=== PATIENT | male | born 1970 | race Caucasian/White ===

== ENCOUNTER 2020-11-01 10:20 | Emergency (ER) | payer OTHER ==
[2020-11-01 11:47] LABS: HEMOGLOBIN 14.8 gm/dl (14.0-17.5); RED BLOOD COUNT 4.88 M/UL (4.20-5.50); WHITE BLOOD COUNT 7.5 K/UL (4.5-11.0)
[2020-11-01 12:07] LABS: BUN/CREATININE RATIO 15 (0-10)
== END 2020-11-01 13:56 | disposition home or self-care (01) ==
LOC: ER1 10:20
PROVIDERS: Physician Assistant
DX: R07.89 Other chest pain (principal); M54.2 Cervicalgia; R06.02 Shortness of breath; F17.200 Nicotine dependence, unspecified, uncomplicated; Z88.0 Allergy status to penicillin
CPT/HCPCS: 71045; 80053; 82550; 82553; 83874; 84484; 85025; 93005; 99285

== ENCOUNTER → 2020-12-20 | Outpatient (CLI) | payer OTHER | LOC: NM 14:19 → HEART 5 12-23 11:00 | DX: R07.9 Chest pain, unspecified (principal) | CPT/HCPCS: 93017 ==